=== PATIENT | male | born 1960 | race Caucasian/White ===

== ENCOUNTER 2016-11-21 13:54 | Inpatient (IN) | payer BC ==
[2016-11-21] MEDS ORDERED: MECLIZINE 12.5 MG TAB PO STA (14:41)
[2016-11-21] MEDS ORDERED: SODIUM CHLORIDE 0.9% 1,000 ML IV STA (14:41)
[2016-11-21] MEDS ORDERED: ONDANSETRON 4 MG/2 ML VIAL IVP STA (14:41)
[2016-11-21] MEDS ORDERED: hydrALAZINE HCL 20 MG/ML 1 ML VIAL IVP STA ×2 (14:44→17:01)
--- NOTE | 2016-11-21 14:45 | ED ---
Dizziness HPI - General Chief Complaint: Dizziness Stated Complaint: dizzy/high blood pressure Time Seen by Provider: 11/21/16 14:36 Source: patient, family, RN notes reviewed Mode of arrival: wheelchair Limitations: no limitations - History of Present Illness Initial Comments: This a 55-year-old male presents emergency Department with chief complaint of dizziness, hypertension. Patient states that this morning he was working on his 's car and states that he get up and became very dizzy and did not feel well. Patient states he came in the house sat for approximately 20 minutes while dizziness continued and states he became very nauseated and diaphoretic and vomited. Patient states that symptoms seemed to calm down a little bit when back at work on the vehicle and states that symptoms worsen. He is dizzy at rest though it is slightly better and is worse with movement. Patient has no history of vertigo or any other dizzy spells. Patient states that 10 hours checked his blood pressure at home and which was 229/129. Patient states has not seen her primary care physician in over 12 years but had no prior history of hypertension. Patient denies headache, vision, focal weakness, chest pain, shortness of breath. Patient still is nauseated at this time. Patient denies dysuria or hematuria. Patient denies any cold-like symptoms. - Related Data Home Medications Medication Instructions Recorded Confirmed Naproxen Sodium/Pseudoephedrin 1 tab PO BID PRN 11/21/16 11/21/16 [Aleve-D Sinus and Cold Caplet] Oxymetazoline 0.05% Nasl [place] 2 spray EA NOSTRIL DAILY 11/21/16 11/21/16 [Afrin 0.05% Nasal [place]] Allergies Allergy/AdvReac Type Severity Reaction Status Date / Time No Known Allergies Allergy Verified 11/21/16 14:47 Review of Systems ROS Statement: Those systems with pertinent positive or pertinent negative responses have been documented in the HPI. ROS Other: All systems not noted in ROS Statement are negative. Past Medical History Past Medical History: No Reported History History of Any Multi-Drug Resistant Organisms: None Reported Past Surgical History: No Surgical Hx Reported Past Psychological History: No Psychological Hx Reported Smoking Status: Never smoker Past Alcohol Use History: Daily Past Drug Use History: None Reported General Exam Limitations: no limitations General appearance: alert, in no apparent distress Head exam: Present: atraumatic, normocephalic, normal inspection Eye exam: Present: normal appearance, PERRL, EOMI. Absent: scleral icterus, conjunctival injection, periorbital swelling ENT exam: Present: normal oropharynx, mucous membranes moist Neck exam: Present: normal inspection, full ROM. Absent: tenderness, meningismus, lymphadenopathy Respiratory exam: Present: normal lung sounds bilaterally. Absent: respiratory distress, wheezes, rales, rhonchi, stridor Cardiovascular Exam: Present: regular rate, normal rhythm, normal heart sounds. Absent: systolic murmur, diastolic murmur, rubs, gallop, clicks GI/Abdominal exam: Present: soft, normal bowel sounds. Absent: distended, tenderness, guarding, rebound, rigid Neurological exam: Present: alert, oriented X3, CN II-XII intact, reflexes normal. Absent: motor sensory deficit Skin exam: Present: warm, dry, intact, normal color. Absent: rash Course Vital Signs 11/21/16 11/21/16 11/21/16 14:22 15:42 16:29 Temperature 97.6 F 98.7 F Pulse Rate 89 83 Respiratory 20 18 Rate Blood Pressure 221/121 224/112 O2 Sat by Pulse 96 96 Oximetry EKG Findings - EKG Comments: EKG Findings:: EKG performed at 14:41 normal sinus rhythm. Biatrial enlargement there nonspecific ST changes, T-wave inversion in V3 V4 V5 and V6 rate of 87 AR 164 QRS duration 84 QT/QTC 402/483 Medical Decision Making - Medical Decision Making 55-year-old male presented for dizziness some discomfort have tension. Patient does feel improved as well as his dizziness. Patient remains hypotensive after labetalol and hydralazine. Patient will be admitted to Dr. Watkins's service with cardiology consult. - Lab Data Result diagrams: 11/21/16 15:17 11/21/16 15:17 Lab Results 11/21/16 11/21/16 11/21/16 Range/Units 15:17 15:17 15:17 WBC 10.1 (3.8-10.6) k/uL RBC 5.44 (4.30-5.90) m/uL Hgb 16.5 (13.0-17.5) gm/dL Hct 48.8 (39.0-53.0) % MCV 89.9 (80.0-100.0) fL MCH 30.4 (25.0-35.0) pg MCHC 33.9 (31.0-37.0) g/dL RDW 13.5 (11.5-15.5) % Plt Count 204 (150-450) k/uL Neutrophils % 80 % Lymphocytes % 14 % Monocytes % 4 % Eosinophils % 1 % Basophils % 1 % Neutrophils # 8.1 H (1.3-7.7) k/uL Lymphocytes # 1.4 (1.0-4.8) k/uL Monocytes # 0.4 (0-1.0) k/uL Eosinophils # 0.1 (0-0.7) k/uL Basophils # 0.1 (0-0.2) k/uL PT 10.8 (9.0-12.0) sec INR 1.1 (<1.1) Sodium 142 (137-145) mmol/L Potassium 4.2 (3.5-5.1) mmol/L Chloride 108 H (98-107) mmol/L Carbon Dioxide 21 L (22-30) mmol/L Anion Gap 13 mmol/L BUN 21 H (9-20) mg/dL Creatinine 0.90 (0.66-1.25) mg/dL Est GFR (MDRD) Af Amer >60 (>60 ml/min/1.73 sqM) Est GFR (MDRD) Non-Af >60 (>60 ml/min/1.73 sqM) Glucose 131 H (74-99) mg/dL Calcium 9.6 (8.4-10.2) mg/dL Total Bilirubin 0.8 (0.2-1.3) mg/dL AST 31 (17-59) U/L ALT 41 (21-72) U/L Alkaline Phosphatase 77 (38-126) U/L Troponin I (0.000-0.034) ng/mL Total Protein 7.8 (6.3-8.2) g/dL Albumin 4.6 (3.5-5.0) g/dL Urine Color Urine Appearance (Clear) Urine pH (5.0-8.0) Ur Specific [place] (1.001-1.035) Urine Protein (Negative) Urine Glucose (UA) (Negative) Urine Ketones (Negative) Urine Blood (Negative) Urine Nitrite (Negative) Urine Bilirubin (Negative) Urine Urobilinogen (<2.0) mg/dL Ur Leukocyte Esterase (Negative) Urine RBC (0-5) /hpf Amorphous Sediment (None) /hpf Urine Bacteria (None) /hpf Urine Mucus (None) /hpf 11/21/16 11/21/16 Range/Units 15:17 15:40 WBC (3.8-10.6) k/uL RBC (4.30-5.90) m/uL Hgb (13.0-17.5) gm/dL Hct (39.0-53.0) % MCV (80.0-100.0) fL MCH (25.0-35.0) pg MCHC (31.0-37.0) g/dL RDW (11.5-15.5) % Plt Count (150-450) k/uL Neutrophils % % Lymphocytes % % Monocytes % % Eosinophils % % Basophils % % Neutrophils # (1.3-7.7) k/uL Lymphocytes # (1.0-4.8) k/uL Monocytes # (0-1.0) k/uL Eosinophils # (0-0.7) k/uL Basophils # (0-0.2) k/uL PT (9.0-12.0) sec INR (<1.1) Sodium (137-145) mmol/L Potassium (3.5-5.1) mmol/L Chloride (98-107) mmol/L Carbon Dioxide (22-30) mmol/L Anion Gap mmol/L BUN (9-20) mg/dL Creatinine (0.66-1.25) mg/dL Est GFR (MDRD) Af Amer (>60 ml/min/1.73 sqM) Est GFR (MDRD) Non-Af (>60 ml/min/1.73 sqM) Glucose (74-99) mg/dL Calcium (8.4-10.2) mg/dL Total Bilirubin (0.2-1.3) mg/dL AST (17-59) U/L ALT (21-72) U/L Alkaline Phosphatase (38-126) U/L Troponin I <0.012 (0.000-0.034) ng/mL Total Protein (6.3-8.2) g/dL Albumin (3.5-5.0) g/dL Urine Color Light Yellow Urine Appearance Turbid (Clear) Urine pH 7.5 (5.0-8.0) Ur Specific [place] 1.013 (1.001-1.035) Urine Protein Trace H (Negative) Urine Glucose (UA) Negative (Negative) Urine Ketones Negative (Negative) Urine Blood Negative (Negative) Urine Nitrite Negative (Negative) Urine Bilirubin Negative (Negative) Urine Urobilinogen <2.0 (<2.0) mg/dL Ur Leukocyte Esterase Negative (Negative) Urine RBC 4 (0-5) /hpf Amorphous Sediment Occasional H (None) /hpf Urine Bacteria Many H (None) /hpf Urine Mucus Rare H (None) /hpf Disposition Clinical Impression: Dizziness, Hypertensive urgency, Cardiomegaly Disposition: ADMITTED IP TO THIS HOSP Condition: Fair Referrals: None,Stated [REFERRING] - 1-2 days
[2016-11-21 15:29] LABS: Basophils # (A) 0.1 k/uL (0-0.2); Basophils % (A) 1 %; CH 30.6; CHCM 34.3; Eosinophils # (A) 0.1 k/uL (0-0.7); Eosinophils % (A) 1 %; HCT 48.8 % (39.0-53.0); HDW 2.67; HGB 16.5 gm/dL (13.0-17.5); Luc % (Auto) 1; Lymphocytes # (A) 1.4 k/uL (1.0-4.8); Lymphocytes % (A) 14 %; MCH 30.4 pg (25.0-35.0); MCHC 33.9 g/dL (31.0-37.0); MCV 89.9 fL (80.0-100.0); Mean Platelet Volume 7.1; Monocytes # (A) 0.4 k/uL (0-1.0); Monocytes % (A) 4 %; Neutrophils # (A) 8.1 k/uL (1.3-7.7); Neutrophils % (A) 80 %; RBC 5.44 m/uL (4.30-5.90); RDW 13.5 % (11.5-15.5); WBC 10.1 k/uL (3.8-10.6); WBC (Perox) 9.29
[2016-11-21 15:34] LABS: INR 1.1 (<1.1); Prothrombin Time 10.8 sec (9.0-12.0)
[2016-11-21 15:44] LABS: ALT 41 U/L (21-72); AST 31 U/L (17-59); Alkaline Phosphatase 77 U/L (38-126); Anion Gap 13 mmol/L; Blood Urea Nitrogen 21 mg/dL (9-20); Calcium 9.6 mg/dL (8.4-10.2); Carbon Dioxide 21 mmol/L (22-30); Chloride 108 mmol/L (98-107); Glucose 131 mg/dL (74-99); Non-African American GFR(MDRD) >60 (>60 ml/min/1.73 sqM); Potassium 4.2 mmol/L (3.5-5.1); Sodium 142 mmol/L (137-145); Total Bilirubin 0.8 mg/dL (0.2-1.3); Total Protein 7.8 g/dL (6.3-8.2)
[2016-11-21 16:04] LABS: Amorphous Sediment,Urine Occasional /hpf; Appearance,Urine Turbid (Clear); Bacteria,Urine Many /hpf; Bilirubin,Urine Negative (Negative); Glucose,Urine (UA) Negative (Negative); Ketones,Urine Negative (Negative); Leukocyte Esterase,Urine Negative (Negative); Mucus,Urine Rare /hpf; Nitrite,Urine Negative (Negative); PH, Urine 7.5 (5.0-8.0); Particle Count 23336; Protein,Urine Trace (Negative); RBC,Urine 4 /hpf (0-5); Specific Gravity,Urine 1.013 (1.001-1.035); UA Billing (MACRO vs. MICRO) MICRO; Urobilinogen,Urine <2.0 mg/dL (<2.0)
[2016-11-21] MEDS ORDERED: ONDANSETRON 4 MG/2 ML VIAL IVP PRN (16:58)
[2016-11-21] MEDS ORDERED: NALOXONE 0.4 MG/ML 1 ML VIAL IV PRN (16:58)
[2016-11-21] MEDS ORDERED: hydrALAZINE HCL 20 MG/ML 1 ML VIAL IVP PRN (17:01)
[2016-11-21] MEDS ORDERED: ASPIRIN 81 MG CHEW PO STA (17:03)
[2016-11-21] MEDS ORDERED: LISINOPRIL 10 MG TAB PO STA (17:45)
[2016-11-21 18:56] VITALS: BMI 43.5
[2016-11-21] MEDS: LISINOPRIL-HCTZ 20-12.5 MG 1 EACH TAB PO SCH (23:40)
[2016-11-21] MEDS: ATENOLOL 50 MG TAB PO SCH (23:40)
[2016-11-22] MEDS: MECLIZINE 25 MG TAB PO PRN ×2 (03:58→11:48)
[2016-11-22 04:01] LABS: Cholesterol 223 mg/dL (<200); HDL Cholesterol 83 mg/dL (40-60); Triglycerides 62 mg/dL (<150)
[2016-11-22 05:46] LABS: Glucose,Whole Blood 123 mg/dL (75-99)
--- NOTE | 2016-11-22 08:15 | HP ---
DATE OF ADMISSION: 11/21/2016 CHIEF COMPLAINT: A 55-year-old white male who presents to emergency room with significant hypertension 220s systolic and dizziness. HISTORY OF PRESENT ILLNESS: This is a 55-year-old male who presents with dizziness, hypertension. He could not get up. He was feeling extremely dizzy, very nausea and diaphoresis and vomiting. He has never had this before or any other symptoms like this before. No other history of vertigo. Blood pressure at home 220 low at 130s. He has not seen a doctor in 12 years. He denies any prior medical history of hypertension. Home medication: 1. ( ). 2. Naprosyn. ALLERGIES: No known drug allergies. REVIEW OF SYSTEMS: Twelve-point review of systems negative for as mentioned in HPI. SOCIAL HISTORY: No smoking. Daily alcohol. No illicit drugs. Present temperature 97.6 to 98, pulse 88 to 89, respiratory rate 16 to 20, blood pressure 220s over 110 to 120, O2 96% on room air. EKG showed ischemic ST-T changes in multiple leads. Placed on ( ) a day and started beta lilia and Lisinopril. At this time he is being given IV hydralazine with a diuretic and with the Lisinopril. ASSESSMENT/PLAN: 1. Acute hypertensive emergency. 2. Acute dizziness secondary to hypertension. 3. O2 risk factor modifications for this patient. 4. Check for diabetes, thyroid problems, etc. 5. Hydralazine will be given IV p.r.n. for hypertension. 6. Cardiomegaly echo will be done.
[2016-11-22] MEDS: ATENOLOL 50 MG TAB PO SCH (08:20)
[2016-11-22] MEDS: LISINOPRIL-HCTZ 20-12.5 MG 1 EACH TAB PO SCH (08:20)
[2016-11-22] MEDS ORDERED: ASPIRIN 325 MG TAB PO SCH (09:00)
[2016-11-22 09:07] VITALS: RESP 18
[2016-11-22 11:33] LABS: Hemoglobin A1C 5.1 % (4.2-6.1)
--- NOTE | 2016-11-22 13:03 | P.CRDCN ---
History of Present Illness Consult date: 11/22/16 Requesting physician: Pranav Estrella Consult reason: hypertension Chief complaint: Dizziness History of present illness: This is a 55-year-old gentleman with history of hypertension, untreated, he is unsure whether or not he has diabetes or hyperlipidemia, unsure of his medical history, he states he has not seen a physician for over 12 years. He states that he was working on his 's car yesterday and suddenly became extremely dizzy, in general he just did not feel well. He walked into the house, approximately 20 minutes later, patient continued to be dizzy and then developed nausea vomiting and diaphoresis. Patient states that the symptoms seemed to improve, so he went back down to go outside and work again on his 's car. In the evening, patient again was feeling mildly dizzy , blood pressure was checked which was noted to be 229/109. Patient then came to the emergency room for further evaluation. EKG on admission here showed a normal sinus rhythm with anterior lateral T-wave inversion. Subsequent EKG again showed normal sinus rhythm with anterior lateral T-wave inversion. CBC is normal. Potassium 4.2, BUN 21, creatinine 0.9. Troponin 0.012, 0.012, 0.019. Cholesterol 223, LDL 128, HDL 83. TSH of 0.297, free T4 0.9. Blood pressure on arrival to the emergency room to 41/115, heart rate in the 80s, 98% on 2 L of oxygen. Blood pressure this morning 137/77 with a heart rate in the 60s. Temperature is 97.9. At the time of my examination this morning, patient denies any further dizziness. He states that he did not have any symptoms of chest discomfort or shortness of breath during any of these episodes. Patient is currently on aspirin 325 mg daily Tenormin 50 mg daily when necessary hydralazine, lisinopril hydrochlorothiazide one tablet daily Past Medical History Past Medical History: No Reported History Additional Past Medical History / Comment(s): No doctor in 12 years. hernia in groin History of Any Multi-Drug Resistant Organisms: None Reported Past Surgical History: No Surgical Hx Reported Past Anesthesia/Blood Transfusion Reactions: No Reported Reaction Additional Past Anesthesia/Blood Transfusion Reaction / Comment(s): never had a blood transfusion Past Psychological History: No Psychological Hx Reported Smoking Status: Former smoker Past Alcohol Use History: Daily Additional Past Alcohol Use History / Comment(s): doesn't see a doctor Past Drug Use History: None Reported - Past Family History Father Additional Family Medical History / Comment(s): multiple heart attacks Brother(s) Family Medical History: Hypertension Medications and Allergies Home Medications Medication Instructions Recorded Confirmed Type Naproxen Sodium/Pseudoephedrin 1 tab PO BID PRN 11/21/16 11/21/16 History [Aleve-D Sinus and Cold Caplet] Oxymetazoline 0.05% Nasl [place] 2 spray EA NOSTRIL DAILY 11/21/16 11/21/16 History [Afrin 0.05% Nasal [place]] Allergies Allergy/AdvReac Type Severity Reaction Status Date / Time No Known Allergies Allergy Verified 11/21/16 14:47 Physical Exam Vitals: Vital Signs Temp Pulse Pulse Resp BP BP BP 11/22/16 11:21 97.9 F 64 18 137/77 11/22/16 08:20 97.8 F 66 18 138/77 11/22/16 04:00 97.4 F L 72 17 11/22/16 00:00 97.3 F L 92 17 11/21/16 20:00 97.1 F L 88 18 11/21/16 18:44 16 202/83 207/96 11/21/16 18:06 88 18 189/88 11/21/16 17:35 83 18 191/99 11/21/16 17:23 98.9 F 76 18 196/103 11/21/16 17:20 88 18 210/106 11/21/16 16:50 72 18 196/102 11/21/16 16:35 78 18 199/103 11/21/16 16:29 83 18 224/112 11/21/16 16:20 86 18 233/114 11/21/16 16:05 84 18 241/115 11/21/16 15:50 86 18 238/107 11/21/16 15:42 98.7 F 11/21/16 15:20 84 18 219/121 11/21/16 15:14 84 18 220/111 11/21/16 14:50 84 18 236/115 11/21/16 14:22 97.6 F 89 20 221/121 BP Pulse Ox 11/22/16 11:21 96 11/22/16 08:20 95 11/22/16 04:00 138/82 95 11/22/16 00:00 168/89 96 11/21/16 20:00 167/84 95 11/21/16 18:44 212/100 96 11/21/16 18:06 97 11/21/16 17:35 97 11/21/16 17:23 98 11/21/16 17:20 98 11/21/16 16:50 97 11/21/16 16:35 97 11/21/16 16:29 96 11/21/16 16:20 98 11/21/16 16:05 98 11/21/16 15:50 98 11/21/16 15:42 11/21/16 15:20 94 L 11/21/16 15:14 95 11/21/16 14:50 99 11/21/16 14:22 96 Intake and Output 11/21/16 11/22/16 11/22/16 22:59 06:59 14:59 Intake Total 480 360 Output Total 0 600 Balance 0 -120 360 Intake: Oral 480 360 Output: Urine 0 600 Other: Voiding Method Toilet Toilet Toilet Weight 111.5 kg 111 kg PHYSICAL EXAMINATION: HEENT: Head is atraumatic, normocephalic. Pupils equal, round. Neck is supple. There is elevated jugular venous pressure. HEART EXAMINATION: Heart S1, S2 normal. No murmur or gallop heard. CHEST EXAMINATION: Lungs are clear to auscultation and precussion. No chest wall tenderness is noted on palpation or with deep breathing. ABDOMEN: Soft, obese, nontender. Bowel sounds are heard. No organomegaly noted. EXTREMITIES: 2+ peripheral pulses with trace evidence of peripheral edema and no calf tenderness noted. NEUROLOGIC patient is awake, alert and oriented -3. . Results 11/21/16 15:17 11/21/16 15:17 Cardiac Enzymes 11/21/16 11/21/16 11/21/16 Range/Units 15:17 15:17 21:27 AST 31 (17-59) U/L Troponin I <0.012 <0.012 (0.000-0.034) ng/mL 11/22/16 Range/Units 03:34 AST (17-59) U/L Troponin I 0.019 (0.000-0.034) ng/mL Coagulation 11/21/16 Range/Units 15:17 PT 10.8 (9.0-12.0) sec Lipids 11/22/16 Range/Units 03:34 Triglycerides 62 (<150) mg/dL Cholesterol 223 H (<200) mg/dL HDL Cholesterol 83 H (40-60) mg/dL CBC 11/21/16 Range/Units 15:17 WBC 10.1 (3.8-10.6) k/uL RBC 5.44 (4.30-5.90) m/uL Hgb 16.5 (13.0-17.5) gm/dL Hct 48.8 (39.0-53.0) % Plt Count 204 (150-450) k/uL Comprehensive Metabolic Panel 11/21/16 Range/Units 15:17 Sodium 142 (137-145) mmol/L Potassium 4.2 (3.5-5.1) mmol/L Chloride 108 H (98-107) mmol/L Carbon Dioxide 21 L (22-30) mmol/L BUN 21 H (9-20) mg/dL Creatinine 0.90 (0.66-1.25) mg/dL Glucose 131 H (74-99) mg/dL Calcium 9.6 (8.4-10.2) mg/dL AST 31 (17-59) U/L ALT 41 (21-72) U/L Alkaline Phosphatase 77 (38-126) U/L Total Protein 7.8 (6.3-8.2) g/dL Albumin 4.6 (3.5-5.0) g/dL Current Medications Generic Name Dose Route Start Last Admin Trade Name Freq PRN Reason Stop Dose Admin Aspirin 325 mg 11/22/16 09:00 11/22/16 08:20 Aspirin PO 325 mg DAILY BRIDGETT Administration Atenolol 50 mg 11/21/16 21:00 11/22/16 08:20 Tenormin PO 50 mg DAILY BRIDGETT Administration Lisinopril/HCTZ 1 each 11/21/16 21:00 11/22/16 08:20 Zestoretic 20-12.5 PO 1 each DAILY BRIDGETT Administration Hydralazine HCl 10 mg 11/21/16 17:01 11/21/16 20:05 Apresoline IVP 10 mg Q4HR PRN Administration Blood Pressure - High >190/100 Meclizine HCl 25 mg 06/25/17 17:00 11/22/16 11:48 Antivert PO 25 mg TID PRN Administration Vertigo Naloxone HCl 0.2 mg 11/21/16 16:58 Narcan IV Q2M PRN Opioid Reversal Ondansetron HCl 4 mg 11/21/16 16:58 11/21/16 20:04 Zofran IVP 4 mg Q8HR PRN Administration Nausea And Vomiting Intake and Output 11/21/16 11/22/16 11/22/16 22:59 06:59 14:59 Intake Total 480 360 Output Total 0 600 Balance 0 -120 360 Intake: Oral 480 360 Output: Urine 0 600 Other: Voiding Method Toilet Toilet Toilet Weight 111.5 kg 111 kg 11/21/16 15:17 11/21/16 15:17 EKG Interpretations (text) EKG shows normal sinus rhythm with anterior lateral ST-T wave changes Assessment and Plan Plan: Assessment and plan #1 symptoms of dizziness with one episode of diaphoresis and nausea and vomiting. Could be secondary to hypertensive urgency. #2 hypertensive urgency, blood pressure 221/121 on admission. #3 EKG changes in the anterior lateral leads, could be secondary to hypertension , we will need to rule out underlying coronary artery disease as well. #4 hyperlipidemia, untreated Plan Patient has not followed with a primary care doctor for over 12 years. He presented with hypertensive urgency and symptoms of dizziness. Patient does have noted EKG changes in the anterior lateral leads which could be secondary to hypertension, underlying coronary artery disease will need to be evaluated for as well. We will start the patient on Lipitor 80. Obtain stat echocardiogram with Doppler study. Continue Tenormin, lisinopril hydrochlorothiazide, and aspirin. Further recommendations to follow.
[2016-11-22] MEDS: amLODIPine 5 MG TAB PO SCH (14:35)
--- NOTE | 2016-11-22 15:25 | P.PN ---
Subjective 55-year-old seen and evaluated sitting up in bed states feels better. States the dizziness has improved. Blood pressure this morning is 137/77. Orthostatic blood pressure readings this afternoon were negative. Patient afebrile. Patients being followed by cardiology service Objective - Vital Signs Vital signs: Vital Signs Temp 97.9 F 11/22/16 11:21 Pulse 64 11/22/16 11:21 Resp 18 11/22/16 11:21 BP 144/79 11/22/16 13:44 Pulse Ox 96 11/22/16 11:21 Intake & Output 11/21/16 11/22/16 11/22/16 18:59 06:59 18:59 Intake Total 480 360 Output Total 0 600 Balance 0 -120 360 Weight 111.5 kg 111 kg Intake: Oral 480 360 Output: Urine 0 600 Other: Voiding Method Toilet Toilet - Exam Physical exam Pleasant 55-year-old gentleman sitting up in bed denying dizziness lightheadedness denying chest pain denying shortness of breath Lungs essentially clear adequate air movement Heart S1-S2 audible and regular monitor sinus Abdomen soft nontender reports no nausea vomiting Extremities no edema noted - Labs CBC & Chem 7: 11/21/16 15:17 11/21/16 15:17 Labs: Abnormal Lab Results - Last 24 Hours (Table) 11/21/16 11/21/16 11/21/16 Range/Units 15:17 15:17 15:40 Neutrophils # 8.1 H (1.3-7.7) k/uL Chloride 108 H (98-107) mmol/L Carbon Dioxide 21 L (22-30) mmol/L BUN 21 H (9-20) mg/dL Glucose 131 H (74-99) mg/dL POC Glucose (mg/dL) (75-99) mg/dL Cholesterol (<200) mg/dL LDL Cholesterol, Calc (0-99) mg/dL HDL Cholesterol (40-60) mg/dL TSH (0.465-4.680) mIU/L Urine Protein Trace H (Negative) Amorphous Sediment Occasional H (None) /hpf Urine Bacteria Many H (None) /hpf Urine Mucus Rare H (None) /hpf 11/21/16 11/22/16 11/22/16 Range/Units 21:35 03:34 05:44 Neutrophils # (1.3-7.7) k/uL Chloride (98-107) mmol/L Carbon Dioxide (22-30) mmol/L BUN (9-20) mg/dL Glucose (74-99) mg/dL POC Glucose (mg/dL) 123 H (75-99) mg/dL Cholesterol 223 H (<200) mg/dL LDL Cholesterol, Calc 128 H (0-99) mg/dL HDL Cholesterol 83 H (40-60) mg/dL TSH 0.297 L (0.465-4.680) mIU/L Urine Protein (Negative) Amorphous Sediment (None) /hpf Urine Bacteria (None) /hpf Urine Mucus (None) /hpf Assessment and Plan Plan: Impression Present on admission dizziness lightheadedness suspect due to hypertension urgency or pressure 229/129 Obesity BMI 43 EKG changes anterior lateral leads could be secondary to hypertension urgency Untreated hyperlipidemia Untreated hypertension Plan Continue recommendations by cardiology service Continue with the Tenormin, lisinopril, hydrochlorothiazide monitor the response Follow up on the echocardiogram pending Further recommendations pending will follow The above impression and plan of care have been discussed and directed by signing physician. Yasmine Carrington nurse practitioner acting as scribe for signing physician.
--- NOTE | 2016-11-22 18:23 | CONS ---
DATE OF CONSULTATION: ADDENDUM: The consultation dictated by Ally Agarwal DNP is reviewed. This patient came with uncontrolled hypertension. This patient's electrocardiogram is suggestive of left ventricular hypertrophy and strain pattern. Patient's echocardiogram shows a severe degree of a left ventricular hypertrophy and normal left ventricular systolic function. We will discontinue atenolol and start the patient on amlodipine 5 mg daily. Continue lisinopril. I have added Lipitor 40 mg daily. If the patient remains stable, he can be discharged home. We will recommend to do a stress test as an outpatient.
[2016-11-23] MEDS ORDERED: LEVOTHYROXINE 25 MCG TAB PO SCH (06:30)
[2016-11-23] MEDS ORDERED: ATORVASTATIN 40 MG TAB PO SCH (09:00)
[2016-11-23] MEDS: amLODIPine 5 MG TAB PO SCH (09:00)
[2016-11-23] MEDS ORDERED: ASPIRIN 81 MG CHEW PO SCH (09:00)
[2016-11-23] MEDS ORDERED: LISINOPRIL 5 MG TAB PO SCH (09:00)
[2016-11-23 10:21] LABS: Magnesium 2.1 mg/dL (1.6-2.3); Potassium 3.6 mmol/L (3.5-5.1)
[2016-11-23] MEDS ORDERED: POTASSIUM CHLORIDE ER 20 MEQ TAB.ER PO SCH (11:00)
[2016-11-23 11:05] VITALS: BP 150/86; PULSE 66; TEMP 97.9
[2016-11-23] MEDS: POTASSIUM CHLORIDE ER 20 MEQ TAB.ER PO SCH ×2 (11:21→13:19)
--- NOTE | 2016-11-23 11:39 | P.PN ---
Subjective 55 year old gentleman being seen and examined sitting up in bed. Patient states he is anxious to be discharged home. Patient states he did talk to the student financial services counselor yesterday "I was told he could have a stress test in the outpatient setting" recommendations by cardiology were reviewed noted. Patient currently is denying any dizziness lightheadedness or chest pain. Patient did have an 8 beat run of nonsustained V. tach this morning patient was asymptomatic electrolytes reviewed magnesium therapeutic range 2.1 the potassium was 3.6 which replacement was given Objective - Vital Signs Vital signs: Vital Signs Temp 97.9 F 11/23/16 11:04 Pulse 66 11/23/16 11:04 Resp 18 11/23/16 11:04 BP 150/86 11/23/16 11:04 Pulse Ox 95 11/23/16 11:04 Intake & Output 11/22/16 11/23/16 11/23/16 18:59 06:59 18:59 Intake Total 960 480 Output Total 300 450 Balance 660 -450 480 Weight 109.9 kg Intake: Oral 960 480 Output: Urine 300 450 Other: Voiding Method Toilet Toilet Toilet # Voids 1 - Exam Physical exam Pleasant 55-year-old gentleman sitting up in bed denying dizziness lightheadedness denying chest pain denying shortness of breath Lungs essentially clear adequate air movement on room air sats are greater than 95% no cough noted Heart S1-S2 audible and regular monitor sinus rhythm denying chest pain Abdomen soft nontender reports no nausea vomiting Extremities no edema noted - Labs CBC & Chem 7: 11/21/16 15:17 11/23/16 09:57 Assessment and Plan Plan: Impression Present on admission dizziness lightheadedness suspect due to hypertension urgency or pressure 229/129 Obesity BMI 43 EKG changes anterior lateral leads could be secondary to hypertension urgency Untreated hyperlipidemia Untreated hypertension Episode 8 beat nonsustained V. tach asymptomatic Untreated hypothyroid start Synthroid 25 MCG stable Plan Scheduled for an outpatient stress test per cardiology's recommendations Further recommendations pending will follow Cardiology's recommendations reviewed. recommend discontinuing atenolol and adding Norvasc 5 mg daily secondary to the echocardiogram suggesting left ventricular hypertrophy and strain pattern. impression and plan of care have been discussed and directed by signing physician. Yasmine Carrington nurse practitioner acting as scribe for signing physician.
--- NOTE | 2016-11-23 12:20 | ECHOF ---
Referral Reason:hypertension, cardiomegaly MEASUREMENTS -------- HEIGHT: 160.0 cm WEIGHT: 110.7 kg BP: 138/82 RVIDd: 3.5 cm (< 3.3) IVSd: 1.7 cm (0.6 - 1.1) LVIDd: 4.3 cm (3.9 - 5.3) LVPWd: 1.7 cm (0.6 - 1.1) IVSs: 2.2 cm LVIDs: 2.2 cm LVPWs: 2.3 cm LAESV Index (A-L): 36.81 ml/m Ao Diam: 3.4 cm (2.0 - 3.7) AV Cusp: 2.1 cm (1.5 - 2.6) LA Diam: 3.5 cm (2.7 - 3.8) MV EXCURSION: 20.477 mm (> 18.000) MV EF SLOPE: 91 mm/s (70 - 150) EPSS: 0.5 cm MV E Sd: 0.50 m/s MV DecT: 275 ms MV A Sd: 0.66 m/s MV E/A Ratio: 0.76 RAP: 5.00 mmHg RVSP: 37.96 mmHg FINDINGS -------- Sinus rhythm. This was a technically difficult study with suboptimal views. There is severe concentric left ventricular hypertrophy. Overall left ventricular systolic function is normal with, an EF between 55 - 60 %. The right ventricle is normal in size and function. LA is moderately dilated 34-39 ml/m2 The right atrium is normal in size. 1.5mg of Definity was utilized for enhancement of images Aortic valve is trileaflet and is mildly thickened. There is no evidence of aortic regurgitation. There is no evidence of aortic stenosis. The mitral valve leaflets are mildly thickened. There is trace to mild mitral regurgitation. Trace tricuspid regurgitation present. There is mild pulmonary hypertension. The right ventricular systolic pressure, as measured by Doppler, is 37.96mmHg. Pulmonic valve appears structurally normal. The aortic root size is normal. The inferior vena cava is mildly dilated. The pericardium is normal. There is no pericardial effusion. CONCLUSIONS -------- 1. Sinus rhythm. 2. Trace tricuspid regurgitation present. 3. There is mild pulmonary hypertension. 4. The right ventricular systolic pressure, as measured by Doppler, is 37.96mmHg. 5. The aortic root size is normal. 6. The inferior vena cava is mildly dilated. 7. There is no pericardial effusion. 8. This was a technically difficult study with suboptimal views. 9. There is severe concentric left ventricular hypertrophy. 10. Overall left ventricular systolic function is normal with, an EF between 55 - 60 %. 11. LA is moderately dilated 34-39 ml/m2 12. 1.5mg of Definity was utilized for enhancement of images 13. Aortic valve is trileaflet and is mildly thickened. 14. The mitral valve leaflets are mildly thickened. 15. There is trace to mild mitral regurgitation. ORAL HYGIENIST: Jhonny Hale RDCS
--- NOTE | 2016-11-23 15:26 | P.DS ---
Providers Date of admission: 11/21/16 17:11 Expected date of discharge: 11/23/16 Attending physician: Pranav Estrella Consults: 11/21/16 16:59 Consult Physician Urgent Consulting Provider: [facility] Consult Reason/Comments: Dizziness, hypertension Do you want consulting provider notified?: Yes Primary care physician: [facility] Course: 55 male presents to the emergency room with a chief complaint of developing dizziness lightheadedness. Patient stated that initially occurred when he was working on his car he had a sudden onset of feeling lightheaded. He came in the house he stopped the activity 20 minutes later he felt better he decided to go back out and continue to work on the car he felt very nauseated felt very diaphoretic vomited once. Patient stated his symptoms continue to persist became the emergency room was noted to have a blood pressure elevated 229/120. Patient denied any headache denied blurred vision. Denied chest pain. Patient states he has not seen a physician in over 12 years and has no history of hypertension. Troponin 3 were negative. A cardiology consultation was requested. Patient was started on antihypertensive meds and monitor closely. Cholesterol 223, LDL 128. HDL 83. TSH 0.29 free T 4 0.9 cardiology recommended that the patient could undergo a outpatient stress test antihypertensive meds were monitored closely patient was tolerating them there were no further episodes of dizziness lightheadedness the patient was felt to be appropriate to be discharged home The echocardiogram was obtained did show severe Concentric left ventricular hypertrophy. Left ventricular systolic function normal EF between 55 and 60% with mild pulmonary hypertension .Impression Present on admission dizziness lightheadedness suspect due to hypertension urgency blood pressure 229/129 on arrival Obesity BMI 43 EKG changes anterior lateral leads could be secondary to hypertension urgency Untreated hyperlipidemia Untreated hypertension Episode 8 beat nonsustained V. tach asymptomatic Untreated hypothyroid start Synthroid 25 MCG stable impression and plan of care have been discussed and directed by signing physician. Yasmine Carrington nurse practitioner acting as scribe for signing physician. Patient Condition at Discharge: Fair Plan - Discharge Summary New Discharge Prescriptions: New Atorvastatin [Lipitor] 40 mg PO DAILY #30 tab Lisinopril [Zestril] 10 mg PO DAILY #30 tab amLODIPine [Norvasc] 10 mg PO DAILY #30 tab Aspirin 81 mg PO DAILY #30 Levothyroxine Sodium [Synthroid] 25 mcg PO DAILY@0630 #30 tab Discontinued Naproxen Sodium/Pseudoephedrin [Aleve-D Sinus and Cold Caplet] 1 tab PO BID PRN PRN Reason: Allergy Symptoms No Action Oxymetazoline 0.05% Nasl [place] [Afrin 0.05% Nasal [place]] 2 spray EA NOSTRIL DAILY Discharge Medication List Oxymetazoline 0.05% Nasl [place] [Afrin 0.05% Nasal [place]] 2 spray EA NOSTRIL DAILY 11/21/16 [History] Aspirin 81 mg PO DAILY #30 11/23/16 [Rx] Atorvastatin [Lipitor] 40 mg PO DAILY #30 tab 11/23/16 [Rx] Levothyroxine Sodium [Synthroid] 25 mcg PO DAILY@30 #30 tab 11/23/16 [Rx] Lisinopril [Zestril] 10 mg PO DAILY #30 tab 11/23/16 [Rx] amLODIPine [Norvasc] 10 mg PO DAILY #30 tab 11/23/16 [Rx] Follow up Appointment(s)/Referral(s): None,Stated [REFERRING] - 1-2 days Arnoldo Berry MD [STAFF PHYSICIAN] - 2 Weeks Pranav Estrella MD [STAFF PHYSICIAN] - 11/25/16 Discharge Disposition: HOME SELF-CARE
--- NOTE | 2016-11-23 15:40 | P.PN ---
Subjective Principal diagnosis: Hypertension This is a 55-year-old gentleman with history of hypertension, untreated, he is unsure whether or not he has diabetes or hyperlipidemia, unsure of his medical history, he states he has not seen a physician for over 12 years. He states that he was working on his 's car yesterday and suddenly became extremely dizzy, in general he just did not feel well. He walked into the house, approximately 20 minutes later, patient continued to be dizzy and then developed nausea vomiting and diaphoresis. Patient states that the symptoms seemed to improve, so he went back down to go outside and work again on his 's car. In the evening, patient again was feeling mildly dizzy , blood pressure was checked which was noted to be 229/109. Patient then came to the emergency room for further evaluation. EKG on admission here showed a normal sinus rhythm with anterior lateral T-wave inversion. Subsequent EKG again showed normal sinus rhythm with anterior lateral T-wave inversion. Primarily patient came with uncontrolled hypertension, EKG was suggestive of left ventricular hypertrophy and strain pattern. Echo revealed severe degree of left ventricular hypertrophy and normal left ventricular systolic function. We will increase his Norvasc to 10 mg today and increase the lisinopril to 10 mg. He may be able to be discharged home to follow-up with Dr. VC Berry in the office. Objective - Vital Signs Vital signs: Vital Signs Temp 97.9 F 11/23/16 11:04 Pulse 66 11/23/16 11:04 Resp 18 11/23/16 11:04 BP 150/86 11/23/16 11:04 Pulse Ox 95 11/23/16 11:04 Intake & Output 11/22/16 11/23/16 11/23/16 18:59 06:59 18:59 Intake Total 960 720 Output Total 300 450 Balance 660 -450 720 Weight 109.9 kg Intake: Oral 960 720 Output: Urine 300 450 Other: Voiding Method Toilet Toilet Toilet # Voids 1 - Exam PHYSICAL EXAMINATION: HEENT: Head is atraumatic, normocephalic. Pupils equal, round. Neck is supple. There is elevated jugular venous pressure. HEART EXAMINATION: Heart S1, S2 normal. No murmur or gallop heard. CHEST EXAMINATION: Lungs are clear to auscultation and precussion. No chest wall tenderness is noted on palpation or with deep breathing. ABDOMEN: Soft, obese, nontender. Bowel sounds are heard. No organomegaly noted. EXTREMITIES: 2+ peripheral pulses with trace evidence of peripheral edema and no calf tenderness noted. NEUROLOGIC patient is awake, alert and oriented -3. . - Labs CBC & Chem 7: 11/21/16 15:17 11/23/16 09:57 Assessment and Plan Plan: Assessment and plan #1 symptoms of dizziness with one episode of diaphoresis and nausea and vomiting. Could be secondary to hypertensive urgency. #2 hypertensive urgency, blood pressure 221/121 on admission. #3 EKG changes in the anterior lateral leads, could be secondary to hypertension , we will need to rule out underlying coronary artery disease as well. #4 hyperlipidemia, untreated Plan Patient primarily came with uncontrolled hypertension, EKG was suggestive of LVH and strain pattern. Echo showed severe degree of LVH and normal left ventricular systolic function. We will increase the Norvasc to 10 mg daily today increase lisinopril to 10 mg daily continue Lipitor 40. He may be able to be discharged home today to follow-up with Dr. VC Berry in the office in 2 weeks. DNP note has been reviewed, I agree with a documented findings and plan of care. Patient was seen and examined.
[2016-11-24] MEDS ORDERED: amLODIPine 10 MG TAB PO SCH (09:00)
[2016-11-24] MEDS ORDERED: LISINOPRIL 10 MG TAB PO SCH (09:00)
--- NOTE | 2016-11-24 11:45 | XR ---
EXAMINATION TYPE: XR chest 2V DATE OF EXAM: 11/21/2016 COMPARISON: NONE HISTORY: Shortness of breath TECHNIQUE: Frontal and lateral views of the chest are obtained. FINDINGS: Scattered senescent parenchymal changes noted. Hyperinflation compatible with COPD. No evidence for infiltrate. No evidence for atelectasis. Heart size is stable. Mediastinal structures are stable and grossly unremarkable. No evidence for hilar prominence. Degenerative changes dorsal spine. IMPRESSION: 1. No evidence for acute pulmonary disease.
== END 2016-11-23 16:22 | disposition home or self-care (01) | DRG 305 ==
LOC: EC 13:54 → 6SEL 17:11
PROVIDERS: ADMIT Family Medicine; ATTEND Family Medicine
DX: I16.0 Hypertensive urgency (principal); I47.2 Ventricular tachycardia; Z68.41 Body mass index [BMI] 40.0-44.9, adult; I10 Essential (primary) hypertension; E78.5 Hyperlipidemia, unspecified; I27.2 Other secondary pulmonary hypertension; E03.9 Hypothyroidism, unspecified; E66.9 Obesity, unspecified; Z87.891 Personal history of nicotine dependence; Z82.49 Family history of ischemic heart disease and other diseases of the circulatory system
CPT/HCPCS: 36415; 71020; 80053; 80061; 81001; 83036; 83735; 84132; 84439; 84443; 84484; 85025; 85610; 93005; 93306; 96361; 96374; 96375; 96376; 99285

== ENCOUNTER → 2016-12-07 | Outpatient (CLI) | payer BC ==
[~2016-12-07] MED LIST: REGADENOSON 0.4 MG/5 ML SYRINGE IV ONE
--- NOTE | 2016-12-07 11:44 | P.STRESS ---
- Stress Test Note Stress Test Results/Findings: Exam Performed: NM stress lexiscan cardiolite Exam Date: 12/07/16 Height: 5 ft 1 in Weight: 110.223 kg Protocol: natasha Stage: N/A Duration of Exercise: N/A Resting Heart Rate: 53 Resting Blood Pressure: 153/92 Maximum Achieved Heart Rate: 88 Maximum Achieved Blood Pressure: 159/88 85% PMHR: 139 100% PMHR: 164 METS: N/A Technologist Comment: Stress Test Results/Findings: Baseline rhythm is sinus mechanism, LVH, T-wave inversion. Patient received an injection of Lexiscan. EKG monitoring showed no acute changes. Cardiolite was injected per protocol. Impression: 1. Nondiagnostic EKG stress test. 2. Nuclear images will be reported separately.
--- NOTE | 2016-12-07 12:27 | NM ---
EXAMINATION TYPE: NM stress lexiscan cardiolite DATE OF EXAM: 12/07/2016 COMPARISON: Chest x-ray 11/21/2016 HISTORY: Coronary artery disease, I 25.10 TECHNIQUE: After the intravenous administration of 9.96 mCi Tc 99m Sestamibi - Cardiolite resting SP ECT images acquired 45 minutes post injection. The patient received 0.4mg Lexiscan, 27.3 mCi Tc 99m Sestamibi - Stress images obtained [address] injection FINDINGS: Review of stress and rest SPECT images demonstrates no distinct perfusion abnormality. Gated analysi s shows normal wall motion with an estimated left ventricular ejection fraction of 68 %. IMPRESSION: No scintigraphic evidence for reversible ischemia. Consider echocardiography for elevated ejection fr action
== END | disposition home or self-care (01) ==
LOC: RADNMMAIN 08:51
PROVIDERS: ATTEND Family Medicine
DX: I25.10 Atherosclerotic heart disease of native coronary artery without angina pectoris (principal)
CPT/HCPCS: 93017; 78452; A9500; J2785

== ENCOUNTER → 2018-08-07 | Outpatient (CLI) | payer BC ==
[2018-08-07 17:09] LABS: Anion Gap 5.7 mmol/L (4.00-12.00); Carbon Dioxide 27.3 mmol/L (21.6-31.8); LDL Cholesterol,Calculated 66.2 mg/dL (0.0-131.0); Potassium 4.6 mmol/L (3.5-5.5); VLDL Calculation 14.8 mg/dL (5.00-40.00)
[2018-08-07 18:34] LABS: Hemoglobin A1C 5.6 % (4.0-6.0)
== END | disposition home or self-care (01) ==
LOC: LABWHC1 09:28
PROVIDERS: ATTEND Family Medicine
DX: I10 Essential (primary) hypertension (principal); Z79.899 Other long term (current) drug therapy
CPT/HCPCS: 36415; 80051; 80061; 82565; 83036; 84443; 84520

== ENCOUNTER → 2019-02-07 | Outpatient (CLI) | payer BC ==
[2019-02-07 10:49] LABS: Appearance,Urine Clear (Clear); Bilirubin,Urine Negative (Negative); Blood,Urine Negative (Negative); Color,Urine Yellow; Glucose,Urine (UA) Negative (Negative); Ketones,Urine Negative (Negative); Leukocyte Esterase,Urine Negative (Negative); Nitrite,Urine Negative (Negative); PH, Urine 5.5 (5.0-8.0); Protein,Urine Negative (Negative); Specific Gravity,Urine 1.018 (1.001-1.035); Urobilinogen,Urine <2.0 mg/dL (<2.0)
[2019-02-07 16:59] LABS: Chol/HDL Ratio 2.73; LDL Cholesterol,Calculated 79.6 mg/dL (0.0-131.0); VLDL Calculation 10.4 mg/dL (5.00-40.00)
== END | disposition home or self-care (01) ==
LOC: LABWHC1 09:41
PROVIDERS: ATTEND Family Medicine
DX: I10 Essential (primary) hypertension (principal); N39.0 Urinary tract infection, site not specified; Z79.899 Other long term (current) drug therapy
CPT/HCPCS: 80061; 81003; 87086; 36415; G0103

== ENCOUNTER → 2019-02-08 | Outpatient (CLI) | payer BC ==
--- NOTE | 2019-02-08 11:02 | US ---
EXAMINATION TYPE: US scrotum with doppler. Grayscale and color Doppler Duplex imaging performed of t he scrotum. DATE OF EXAM: 02/08/2019 COMPARISON: NONE CLINICAL HISTORY: N50.8 TESTICULAR EDEMA. Edema right testicle for a few months EXAM MEASUREMENTS: TESTICLES: Right Testicle: 4.7 x 1.9 x 3.8 cm Left Testicle: 4.5 x 1.9 x 3.3 cm EPIDIDYMIS HEAD: Right Epididymis: 0.7 cm Left Epididymis: 0.8 cm Doppler performed to assess for testicular vascularity; good bilateral color flow and waveforms are s een. Presence of hydroceles: Large complex fluid collection right scrotal sac = 9.5 x 6.4 x 9.5cm IMPRESSION: Confirmation of large right scrotal fluid collection or hydrocele on initial images. No s uspicious intratesticular mass bilaterally.
== END | disposition home or self-care (01) ==
LOC: RADUSWWP 06:47
PROVIDERS: ATTEND Family Medicine
DX: N43.3 Hydrocele, unspecified (principal)
CPT/HCPCS: 76870; 93975

== ENCOUNTER → 2019-05-01 | Outpatient (CLI) | payer BC | END | disposition home or self-care (01) | LOC: LABWHC1 07:31 | PROVIDERS: ATTEND Urology | DX: R97.20 Elevated prostate specific antigen [PSA] (principal) | CPT/HCPCS: 36415; 84153 ==

== ENCOUNTER → 2019-12-07 | Outpatient (CLI) | payer BC ==
--- NOTE | 2019-12-07 10:07 | US ---
EXAMINATION TYPE: US prostate transrectal DATE OF EXAM: 12/07/2019 COMPARISON: NONE CLINICAL HISTORY: Elevated PSA R97.2. Elevated PSA This examination was performed using the transrectal probe. EXAM MEASUREMENTS: Gland Size: 4.6 x 3.3 x 4.4cm Volume: 35.4ml Predicted PSA: 4.25 Actual PSA (if available): Patient states PSA is 7.0 Enlarged heterogeneous gland with calcifications, no definite lesions seen at this time. IMPRESSION: No focal lesion identified. Discordant actual PSA with predicted PSA. Consider tissue di agnosis. Predicted PSA = volume x 0.12 ng/ml Calculated Volume = 0.5236 x L x W x H
== END | disposition home or self-care (01) ==
LOC: RADUSWWP 09:22
PROVIDERS: ATTEND Family Medicine
DX: R97.20 Elevated prostate specific antigen [PSA] (principal)
CPT/HCPCS: 76872

== ENCOUNTER 2020-02-11 07:40 | Day surgery (SDC) | payer BC ==
[2020-02-11 08:25] VITALS: RESP 18; TEMP 98.1
[2020-02-11 10:09] VITALS: BP 122/70; PULSE 75
--- NOTE | 2020-02-11 12:43 | US ---
Ultrasound-guided transrectal biopsy of the prostate gland. HISTORY: Elevated PSA. Informed consent was obtained and all the patient's questions were answered. Topical Xylocaine gel w as applied to the probe. The prostate gland was localized sonographically and 12 total samples were obtained with 2 samples obtained from each site. An 18-gauge biopsy device was utilized. Sites incl ude right base, left base, right mid gland, left mid gland, right apex and left apex. Samples were s ent to pathology further evaluation. The patient was monitored following the biopsy for approximatel y one hour. At the time of discharge patient's urine was clear and vitals were stable. IMPRESSION: Successful ultrasound guided core biopsy of the prostate gland. Pathology results are pe nding.
== END 2020-02-11 10:15 | disposition home or self-care (01) ==
LOC: RADPROMAIN 07:40
PROVIDERS: ATTEND Family Medicine
DX: N41.0 Acute prostatitis (principal)
CPT/HCPCS: 55700; 88305

== ENCOUNTER → 2021-10-22 | Outpatient (CLI) | payer BC ==
--- NOTE | 2021-10-22 22:17 | US ---
EXAMINATION TYPE: US prostate transrectal DATE OF EXAM: 10/22/2021 COMPARISON: US December 07, 2019 CLINICAL HISTORY: R97.2 ELEVATED PSA LEVEL. Elevated PSA level. Hx prostate biopsy. This examination was performed using the transrectal probe. EXAM MEASUREMENTS: Gland Size: 5.5 x 4.4 x 3.3 cm. Volume: 41.25 ml Predicted PSA: 4.95 Actual PSA (if available):12.0 No masses visualized in the peripheral zone. Prostate appears enlarged. Prominent lobulated seminal vesicles redemonstrated bilaterally. Persistent heterogeneous slightly en larged prostate gland with central calcifications. No suspicious hypoechoic nodules. IMPRESSION: No significant change from prior ultrasound. Consider repeat random sampling or prostate MRI to further evaluate given history of continued rising PSA. Predicted PSA = volume x 0.12 ng/ml Calculated Volume = 0.5236 x L x W x H
== END | disposition home or self-care (01) ==
LOC: RADUSWWP 09:25
PROVIDERS: ATTEND Family Medicine
DX: R97.20 Elevated prostate specific antigen [PSA] (principal)
CPT/HCPCS: 76872

== ENCOUNTER → 2024-04-03 | Outpatient (CLI) | payer BC ==
--- NOTE | 2024-04-03 10:01 | US ---
EXAMINATION TYPE: US prostate transrectal DATE OF EXAM: 04/03/2024 COMPARISON: US 2021 CLINICAL INDICATION: Male, 63 years old with history of R97.20 elevated PSA; TECHNIQUE: Grayscale and color Doppler imaging of the prostate gland. This examination was performed using the transrectal probe. EXAM MEASUREMENTS: Gland Size: 5.5 x 4.0 x 4.5cm Volume: 51.0ml Predicted PSA: 6.1 Actual PSA (if available):25.3 Enlarged heterogeneous gland with calcifications. No discrete focal lesion identified. IMPRESSION: 1. No suspicious masses visualized. 2. Note that prostate MRI is a more sensitive exam for the detection of clinically significant prost ate adenocarcinoma. 3. Prostatomegaly which can be seen with BPH. [facility], , 04/03/2024 9:59 AM
== END | disposition home or self-care (01) ==
LOC: RADUSWWP 09:12
PROVIDERS: ATTEND Family Medicine
DX: C61 Malignant neoplasm of prostate (principal); R97.20 Elevated prostate specific antigen [PSA]; N40.0 Benign prostatic hyperplasia without lower urinary tract symptoms
CPT/HCPCS: 76872